=== PATIENT | female | born 1965 | race Caucasian/White ===

== ENCOUNTER 2022-09-28 14:35 | Outpatient (CLI) | payer BC, SELFPAY ==
--- NOTE | 2022-09-28 15:33 | MR_ITS ---
WS: [id number] MRI LUMBAR SPINE NONCONTRAST TECHNIQUE: Sagittal T1, T2 and STIR imaging. Axial T1 and T2 imaging. CLINICAL INFORMATION: LEFT SIDED SCIATICA COMPARISON: None. FINDINGS: Mild lumbar curve. No acute compression. No high-grade central canal stenosis. L1-L2: Normal. L2-L3: No significant disc bulging. Spinal canal and foramen are patent. Mild facet arthropathy. L3-L4: Minimal annular bulging. Slight effacement of ventral thecal sac. Mild facet arthropathy. Spin al canal and foramen are patent. / L4-L5: Mild annular bulging with slight effacement of ventral thecal sac. Slight narrowing of the RIG HT subarticular recess. RIGHT foraminal protrusion with mild to moderate RIGHT foraminal narrowing an d slight impingement on the exiting RIGHT L4 nerve root. LEFT foramen is patent. Moderate facet arthr opathy. L5-S1: Mild disc osteophytic ridging. Spinal canal is patent. LEFT eccentric disc bulging encroaches on the far exiting LEFT L5 nerve root. Mild facet arthropathy. Visualized pelvic bony structures: Normal. Paravertebral soft tissues: Normal. T2 hyperintense lesion near the internal cervical os likely nabothian cyst measuring 8 mm. MR/MR lumbar spine wo con* [id number] IMPRESSION: 1. Mild lumbar curve. No acute compression. No high-grade central canal stenos is. 2. Mild annular bulging with slight narrowing of the RIGHT L4-L5 subarticular recess. Foraminal protrusion at this level contacts the exiting RIGHT L4 nerve root with mild to moderate RIGHT foraminal narrowing. 3. Far LEFT eccentric L5 disc bulging slightly encroaches on the far exiting L EFT L5 nerve root laterally. 4. Moderate facet arthropathy L3-L4 L4-L5.
== END 2022-09-28 14:36 | disposition home or self-care (01) ==
PROVIDERS: PCP Family Medicine; Visit Provider Family Medicine
DX: M54.32 Sciatica, left side (principal); M47.816 Spondylosis without myelopathy or radiculopathy, lumbar region
CPT/HCPCS: 72148